=== PATIENT | female | born 1985 | race Caucasian/White ===

== ENCOUNTER 2017-05-08 13:40 | Emergency (ER) | END 2017-05-08 14:49 | disposition home or self-care (01) ==

== ENCOUNTER 2018-08-02 09:01 | Emergency (ER) | payer OTHER ==
[~2018-08-02] VITALS: Ht 177.8 cm; Wt 85.0 kg
[~2018-08-02 09:01] MED LIST: ACET-818 PO; CLIN300C10 PO; IBUP-1542 PO; PREN1TAB12 PO
[2018-08-02 09:04] VITALS: BP 130/88; PULSE 68; RESP 18; Ht 177.8 cm; Wt 85.0 kg
[2018-08-02] MEDS ORDERED: BEN25 PO (09:19)
[2018-08-02] MEDS ORDERED: CEPH-443 PO (09:19)
--- NOTE | 2018-08-02 09:26 | ERD ---
ER Documentation Chief Complaint Chief Complaint redness and blisters on legs , possible insect bites since saturday HPI Patient is a 32-year-old female who presents the ER for concerns of insect bite wounds to her bilateral lower extremity 3 days. 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 Patient states when she went home 3 days ago she noticed that she had some lesions on her lower legs. She states that she developed some surrounding redness to the lesions. She also states the lesions are itchy. Patient denies any nausea, vomiting, abdominal pain, chest pain, shortness of breath, fevers or chills. Patient does not recall her last tetanus shot. ROS All systems reviewed and are negative except as per history of present illness. Medications Home Meds Active Scripts Cephalexin* (Keflex*) 500 Mg Capsule, 500 MG PO TID for 7 Days, CAP Prov:JORGE ARNDT PA-C 08/02/18 Diphenhydramine Hcl* (Benadryl*) 25 Mg Cap, 25 MG PO Q6, #30 CAP Prov:JORGE ARNDT PA-C 08/02/18 Ibuprofen* (Motrin*) 600 Mg Tab, 600 MG PO Q6, #30 TAB Prov:JORGE ARNDT PA-C 05/08/17 Clindamycin Hcl* (Clindamycin Hcl*) 300 Mg Capsule, 300 MG PO TID for 10 Days, CAP Prov:JORGE ARNDT PA-C 05/08/17 Reported Medications Acetaminophen-Codeine* (Tylenol No.3*) 1 Tab Tab, 1 TAB PO, TAB 07/21/13 Vit-Iron Fumarate-FA (Prenavite Tablet) 1 Tab Tablet, 1 TAB PO DAILY 07/21/13 Allergies Allergies: Coded Allergies: No Known Drug Allergies (Verified Allergy, Unknown, 02/06/16) PMhx/Soc Medical and Surgical Hx: pt denies Medical Hx History of Surgery: Yes () Anesthesia Reaction: No Hx Neurological Disorder: No Hx Respiratory Disorders: No Hx Cardiac Disorders: No Hx Psychiatric Problems: No Hx Miscellaneous Medical Probl: No Hx Alcohol Use: Yes (social) Hx Substance Use: Yes (marijuana) Hx Tobacco Use: No Smoking Status: Never smoker FmHx Family History: No diabetes Physical Exam Vitals Vital Signs Date Temp Pulse Resp B/P (MAP) Pulse Ox O2 O2 Flow FiO2 Time Delivery Rate 08/02/18 98.2 68 18 130/88 99 09:04 (102) Physical Exam GENERAL: Well-developed, well-nourished female. Appears in no acute distress. Speaking in full sentences. HEAD: Normocephalic, atraumatic. EYES: Pupils are equally reactive bilaterally. EOMs grossly intact. No conjunctival erythema. ENT: Moist mucous membranes. No uvula deviation. No kissing tonsils. NECK: Supple. No meningismus. Normal range of motion of the neck. EXTREMITIES: Equal pulses bilaterally. No peripheral clubbing, cyanosis or edema. No unilateral leg swelling. NEUROLOGIC: Alert and oriented. Moving all four extremities without any difficulty. Normal speech. Steady gait. SKIN: Numerous circular lesions with faint surrounding erythema noted on the patient's bilateral lower extremities. Few lesions appear to have fluid blisters associated. No streaking. No induration or fluctuance. Results 24 hrs Current Medications Medications Dose Sig/Michael Start Time Status Last (Trade) Ordered Route PRN Stop Time Admin Dose Reason Admin Diphtheria/ 0.5 ml ONCE ONCE 08/02/18 Tetanus/Acell IM* 09:30 08/02/18 Pertussis 09:31 (Adacel) 25 mg ONCE ONCE 08/02/18 Diphenhydrami PO 09:30 08/02/18 ne HCl 09:31 (Benadryl) Procedures/MDM MEDICAL DECISION MAKING: This is a 32-year-old female presents ER for concerns of a bite on her bilateral lower extremities.. Vital signs were reviewed. Patient was afebrile. Patient is not diabetic. Patient stated that the lesions were itchy. Patient was given Benadryl p.o. here. Patient will be started on Keflex to prevent infection. Patient was advised to avoid popping the associated blisters. Patient advised to monitor symptoms closely and return to the ER for any new or worsening redness, swelling, pain, fevers or chills. Low suspicion for necrotizing fasciitis, sepsis, gangrene, Juma-Rodrigo syndrome, toxic epidural necrolysis, abscess, cellulitis, herpes zoster, viral exanthem, anaphylaxis, fungal infection, insect bite, impetigo, dermatitis. Patient was nontoxic, non-ill- appearing prior to discharge. PRESCRIPTIONS: Keflex, Benadryl DISCHARGE: At this time, patient is stable for discharge and outpatient management. I have advised the patient to avoid any new products, creams or possible allergens. I have advised the patient to avoid scratching the lesions. I have instructed the patient to follow-up with his/her primary care physician in 1-2 days. If symptoms persist, patient may need to see a refrigerator car icer for further examinations and testing. I have instructed the patient to promptly return to the ER at any time for any new or worsening symptoms including increased pain, fever, redness, swelling, warmth, difficulty breathing or vomiting. The patient and/or family expressed understanding of and agreement with this plan. All questions were answered. Home care instructions were provided. Disclaimer: Inadvertent spelling and grammatical errors are likely due to EHR/dictation software use and do not reflect on the overall quality of patient care. Also, please note that the electronic time recorded on this note does not necessarily reflect the actual time of the patient encounter. Departure Diagnosis: Primary Impression: Insect bites Encounter type: initial encounter Site of insect bite: unspecified site Qualified Codes: W57.XXXA - Bitten or stung by nonvenomous insect and other nonvenomous arthropods, initial encounter Condition: Fair Patient Instructions: Allergic Reaction, Insect (General) Referrals: [facility] YOU HAVE RECEIVED A MEDICAL SCREENING EXAM AND THE RESULTS INDICATE THAT YOU DO NOT HAVE A CONDITION THAT REQUIRES URGENT TREATMENT IN THE EMERGENCY DEPARTMENT. FURTHER EVALUATION AND TREATMENT OF YOUR CONDITION CAN WAIT UNTIL YOU ARE SEEN IN YOUR DOCTORS OFFICE WITHIN THE NEXT 1-2 DAYS. IT IS YOUR RESPONSIBILITY TO MAKE AN APPOINTMENT FOR FOLOW-UP CARE. IF YOU HAVE A PRIMARY DOCTOR --you should call your primary doctor and schedule an appointment IF YOU DO NOT HAVE A PRIMARY DOCTOR YOU CAN CALL OUR PHYSICIAN REFERRAL HOTLINE AT IF YOU CAN NOT AFFORD TO SEE A PHYSICIAN YOU CAN CHOSE FROM THE FOLLOWING [facility] [address] [facility] [address] [facility] [address] [facility] [address] [facility] [address] [facility] [facility] [address] [facility]. [facility] YOU HAVE RECEIVED A MEDICAL SCREENING EXAM AND THE RESULTS INDICATE THAT YOU DO NOT HAVE A CONDITION THAT REQUIRES URGENT TREATMENT IN THE EMERGENCY DEPARTMENT. FURTHER EVALUATION AND TREATMENT OF YOUR CONDITION CAN WAIT UNTIL YOU ARE SEEN IN YOUR DOCTORS OFFICE WITHIN THE NEXT 1-2 DAYS. IT IS YOUR RESPONSIBILITY TO MAKE AN APPOINTMENT FOR FOLOW-UP CARE. IF YOU HAVE A PRIMARY DOCTOR --you should call your primary doctor and schedule and appointment IF YOU DO NOT HAVE A PRIMARY DOCTOR YOU CAN CALL OUR PHYSICIAN REFERRAL HOTLINE AT . IF YOU CAN NOT AFFORD TO SEE A PHYSICIAN YOU CAN CHOSE FROM THE FOLLOWING [facility]: [facility] [address] [place] [address] [facility] [address] [place] [address] [facility] [address] [place] [address] Additional Instructions: Monitor your symptoms closely. If you develop worsening redness, swelling, fevers, chills, return to the ER immediately. Call your primary care doctor TOMORROW for an appointment during the next 1-2 days.See the doctor sooner or return here if your condition worsens before your appointment time. JORGE ARNDT PA-C Aug 02, 2018 09:25
[2018-08-02] MEDS ORDERED: DIPHENHYDRAMINE 25 MG CAP PO ONE (09:30)
[2018-08-02] MEDS ORDERED: DIPHTH/TET/ACEL PERTUSS (ADULT) 0.5 ML VIAL IM* ONE (09:30)
== END 2018-08-02 09:52 | disposition home or self-care (01) ==
LOC: FTE 09:01
DX: S80.862A Insect bite (nonvenomous), left lower leg, initial encounter (principal); S80.861A Insect bite (nonvenomous), right lower leg, initial encounter; W57.XXXA Bitten or stung by nonvenomous insect and other nonvenomous arthropods, initial encounter; Y92.89 Other specified places as the place of occurrence of the external cause; Z23 Encounter for immunization
CPT/HCPCS: 90471; 90715; Z7502; Z7610